=== PATIENT | female | born 1995 | race African-American/Black ===

== ENCOUNTER 2021-01-21 22:45 | Emergency (ER) | payer SELFPAY ==
[2021-01-21 22:53] VITALS: BP 121/82; PULSE 85; TEMP 98; BMI 22.3
[2021-01-22] MEDS ORDERED: IBUPROFEN 400 MG TABLET (FP) PO ONE ×2 (00:12→00:20)
[2021-01-22] MEDS ORDERED: IBUPROFEN 600 MG TABLET (FP) PO ONE (00:20)
== END 2021-01-22 00:26 | disposition home or self-care (01) ==
LOC: JER 22:45
DX: N64.4 Mastodynia (principal)
CPT/HCPCS: 93005; 93010; 99284-25